=== PATIENT | female | born 1990 | race Two or more races ===

== ENCOUNTER 2019-01-13 10:36 | Emergency (ER) | payer SELFPAY ==
[~2019-01-13] VITALS: Ht 160 cm; Wt 66.4 kg
[2019-01-13] MEDS ORDERED: MORPHINE SULFATE 4 MG/ML, 1ML ONE (11:11)
[2019-01-13] MEDS ORDERED: ONDANSETRON 2MG/ML, 2ML ONE (11:11)
[2019-01-13] MEDS ORDERED: SODIUM CHLORIDE FLUSH 10ML SYR IVF ONE (11:30)
[2019-01-13] MEDS ORDERED: ONDANSETRON 2MG/ML, 2ML IVPush ONE (11:30)
[2019-01-13] MEDS ORDERED: MORPHINE SULFATE 4 MG/ML, 1ML IVPush PRN (11:30)
[2019-01-13 11:48] LABS: MEAN CORPUSCULAR HEMOGLOBIN 21.6 pg (27.0-34.8); MEAN CORPUSCULAR HGB CONC 31.7 g/dL (32.4-35.8); MEAN CORPUSCULAR VOLUME 68.3 fL (80-100); MEAN PLATELET VOLUME 11.9 fL (7.4-10.4); PLATELET COUNT 307 x10^3/uL (130-400); RED BLOOD COUNT 5.32 x10^6/uL (3.82-5.3); RED CELL DISTRIBUTION WIDTH 18.2 % (9.6-15.2)
[2019-01-13 11:54] LABS: ANION GAP 5 mmol/L (5-15); CALCIUM 8.8 mg/dL (8.5-10.1); CHLORIDE 109 mmol/L (98-107)
--- NOTE | 2019-01-13 11:58 | NUR ---
pt laying nirali gurney with eyes closed, responds approp to staff, more comfortable after pain med, NAD, comfort measures provided, call light within reach.
[2019-01-13 12:02] LABS: ALANINE AMINOTRANSFERASE 17 U/L (12-78); ALKALINE PHOSPHATASE 65 U/L (45-117); BILIRUBIN,TOTAL 0.2 mg/dL (0.2-1.0); CREATININE 0.72 mg/dL (0.55-1.02); TOTAL PROTEIN 7.4 g/dL (6.4-8.2)
[2019-01-13 12:25] LABS: BASOPHILS # (AUTO) 0.04 x10^3/uL (0-0.1); BASOPHILS % (AUTO) 0 % (0-1); EOSINOPHILS # (AUTO) 0.11 x10^3/uL (0-0.4); EOSINOPHILS % (AUTO) 1 % (1-7); LYMPHOCYTES # (AUTO) 1.66 x10^3/uL (1-3.4); LYMPHOCYTES % (AUTO) 16 % (22-44); MD SCAN; MONOCYTES # (AUTO) 0.51 x10^3/uL (0.2-0.8); MONOCYTES % (AUTO) 5 % (2-9); NEUTROPHILS # (AUTO) 8.09 x10^3/uL (1.8-6.8); NEUTROPHILS % (AUTO) 78 % (42-75)
[2019-01-13 12:31] LABS: MICROSCOPIC NOT IND
[2019-01-13 12:35] LABS: CULTURE INDICATED? NO
--- NOTE | 2019-01-13 12:57 | NUR ---
pt continues laying on gurney with eyes closed, able to doze off, responds approp to staff, NAD, comfort measures provided, call light within reach.
[2019-01-13] MEDS ORDERED: OMNIPAQUE 350 MG/ML, 100ML BOTTLE ONE (13:25)
[2019-01-13 13:57] VITALS: BP 94/52
--- NOTE | 2019-01-13 14:01 | NUR ---
pt upright on gurney awake & comfortable, able to doze off, responds approp to staff, NAD, comfort measures provided, call light within reach. pt to CT.
== END 2019-01-13 14:35 | disposition home or self-care (01) ==
LOC: ED 13:34
DX: R10.31 Right lower quadrant pain (principal)
CPT/HCPCS: 36415; 74177; 76830; 80053; 81003; 83690; 84703; 85025; 96374; 99284; J2405; Q9967